=== PATIENT | female | born 1995 | race Caucasian/White ===

== ENCOUNTER 2018-11-10 08:48 | Outpatient (CLI) | payer MEDICAID ==
--- NOTE | 2018-11-12 06:59 | Ultrasound Report ---
Reason: TEST POSITIVE Procedure Date: 11/10/2018 Accession Number: [id number] / [id number] Procedure: US - OB 14+ Weeks CPT Code: FULL RESULT: EXAM: LIMITED OBSTETRICAL ULTRASOUND EXAM DATE: 11/10/2018 09:54 AM. CLINICAL HISTORY: test positive. LMP: Unknown. COMPARISON: None. TECHNIQUE: Real-time transabdominal OB ultrasound. Multiple junior sales representative static images were saved for review. GENERAL EVALUATION Puri , gestational sac measures 66.7 mm, corresponding to gestational age of 13 weeks 1 day, EDC on 05/17/2019. Unremarkable shape of the gestational sac. Cardiac activity: 153 bpm. Single Embryo CRL: 73.0 mm, corresponding to gestational age of 13 weeks 3 days, EDC on 05/15/2019. Placenta: Posterior. Amniotic fluid: Adequate. Perigestational bleed. There is a posterior perigestational fluid collection, 2 x 1.2 x 1.9 cm. MATERNAL STRUCTURES Uterus: Anteverted, unremarkable. Right ovary: Not visualized, likely due to the patient's body habitus. Left ovary: 3.2 x 1.7 x 2.2 cm, unremarkable. IMPRESSION: 1. Puri viable intrauterine with gestational age of 13 weeks 3 days with JOHN on 05/15/2019 based on the current exam. 2. Small perigestational fluid collection. 3. Unremarkable imaging of the left ovary; the right ovary cannot be visualized, likely due to patient's body habitus. RAD[facility]
== END 2018-11-10 08:49 | disposition home or self-care (01) ==
LOC: DI 08:48
PROVIDERS: ATTEND Nurse Practitioner Obstetrics & Gynecology
DX: Z32.01 Encounter for pregnancy test, result positive (principal)
CPT/HCPCS: 76805

== ENCOUNTER 2018-11-15 08:00 | Outpatient (CLI) | payer MEDICAID ==
[2018-11-15 12:03] LABS: MUDS CUTOFF CONCENTRATIONS CUTOFF CONC BELOW:
[2018-11-15 12:39] LABS: AMPHETAMINE SCREEN,URINE NEGATIVE (NEGATIVE); BENZODIAZEPINES SCREEN, URINE NEGATIVE (NEGATIVE); COCAINE SCREEN URINE NEGATIVE (NEGATIVE); METHAMPHETAMINES SCREEN, URINE NEGATIVE (NEGATIVE); OPIATE SCREEN, URINE NEGATIVE (NEGATIVE)
[2018-11-15 12:40] LABS: METHADONE SCREEN, URINE NEGATIVE (NEGATIVE); OXYCODONE SCREEN, URINE NEGATIVE (NEGATIVE); PROPOXYPHENE SCREEN, URINE NEGATIVE (NEGATIVE); TRICYCLIC ANTIDEPRESSANT,URINE NEGATIVE (NEGATIVE)
[2018-11-15 20:19] LABS: CANDIDA GROUP DNA NEGATIVE (NEGATIVE); CANDIDA KRUSEI DNA NEGATIVE (NEGATIVE); TRICHOMONAS VAGINALIS DNA NEGATIVE (NEGATIVE)
[2018-11-15 21:22] LABS: TRICHOMONAS VAGINALIS DNA NEGATIVE (NEGATIVE)
== END 2018-11-15 23:59 | disposition home or self-care (01) ==
LOC: LAB.R 08:00
PROVIDERS: ATTEND Nurse Practitioner Obstetrics & Gynecology
DX: N76.0 Acute vaginitis (principal); Z11.3 Encounter for screening for infections with a predominantly sexual mode of transmission; Z36.89 Encounter for other specified antenatal screening
CPT/HCPCS: 80306; 87491; 87591; 87661; 87801

== ENCOUNTER 2018-11-21 13:28 | Outpatient (CLI) | payer MEDICAID ==
[2018-11-21 13:52] LABS: BASOPHILS % (AUTO) 0.3 %; EOSINOPHILS # (AUTO) 0.1 10^3/uL (0.0-0.7); EOSINOPHILS % (AUTO) 0.9 %; HGB - HEMOGLOBIN 13.8 g/dL (12.0-16.0); LYMPHOCYTES # (AUTO) 2.3 10^3/uL (1.5-3.5); LYMPHOCYTES % (AUTO) 22.1 %; MEAN CORPUSCULAR HEMOGLOBIN 29.2 pg (27.0-31.0); MEAN CORPUSCULAR HGB CONC 33.8 g/dL (32.0-36.0); MEAN CORPUSCULAR VOLUME 86.3 fL (81.0-99.0); MEAN PLATELET VOLUME 9.9 fL (7.9-10.8); MONOCYTES # (AUTO) 0.5 10^3/uL (0.0-1.0); MONOCYTES % (AUTO) 4.7 %; NEUTROPHILS # (AUTO) 7.6 10^3/uL (1.5-6.6); NEUTROPHILS % (AUTO) 71.5 %; PLT - PLATELET COUNT 218 10^3/uL (130-450); RED BLOOD COUNT 4.73 10^6/uL (4.20-5.40); RED CELL DISTRIBUTION WIDTH 13.2 % (12.0-15.0); WHITE BLOOD COUNT 10.6 x10^3/uL (4.8-10.8)
[2018-11-22 11:47] LABS: HEPATITIS B SURFACE ANTIGEN NON-REACTIVE (NON-REACTIVE); HEPATITIS C ANTIBODY NON-REACTIVE (NON-REACTIVE)
[2018-11-22 15:27] LABS: HIV AG/AB 4TH GEN NON-REACTIVE (NON-REACTIVE)
== END 2018-11-21 13:29 | disposition home or self-care (01) ==
LOC: LAB 13:28
PROVIDERS: ATTEND Nurse Practitioner Obstetrics & Gynecology
DX: Z36.89 Encounter for other specified antenatal screening (principal); Z36.8A Encounter for antenatal screening for other genetic defects
CPT/HCPCS: 81511; 81599; 85025; 86592; 86762; 86803; 86850; 86900; 86901; 87340; 87389